=== PATIENT | male | born 2000 | race African-American/Black ===

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

== ENCOUNTER 2020-06-02 11:09 | Emergency (ER) | payer OTHER ==
[2020-06-02 11:27] VITALS: BP 160/72
--- NOTE | 2020-06-02 11:54 | ER Document Report ---
ED General - General Chief Complaint: STD Exposure Stated Complaint: STD CHECK Primary Care Provider: YANDEL PAGE MD [ACTIVE STAFF] - Follow up as needed TRAVEL OUTSIDE OF THE [place] IN LAST 30 DAYS: No - HPI Notes: Chief Complaint: STD check Historian: History obtained from patient HPI: This is a 19-year-old male presents to the ER complaining of possible STD exposure. Patient says he had sexual contact with a partner who recently called him and said they were diagnosed with herpes. Said he had a painful rash on his genitals that resolved a couple days ago. He he still has some mild dysuria. Denies testicular swelling or pain. No fevers or chills. No treatments tried. ROS: Constitutional: no fevers. HEENT: no CAMACHO, sore throat, or vision changes. CV: no chest pain or palpitations. Resp: no cough or SOB. GI: n dysuria. painful genital rashresolved MSK: no back pain, no joint swelling/redness. Skin: no rashes or itching. Neuro: no seizures, weakness, numbness, or confusion. Hematological: no ecchymosis or easy bleeding. Endocrine: no polyuria/polydipsia, no heat/cold intolerance. Psych: no SI/HI, AH/VH or memory loss. PMHx: Reviewed and agree as charted by RN. PSHx: Reviewed and agree as charted by RN. SOCHx: Reviewed and agree as charted by RN. FHX: No significant familial comorbid conditions directly related to patient complaint Current Medications: Reviewed and agree with the patient medications as charted by the RN. Allergies: Reviewed and agree with the listed allergies as charted by the RN Physical Exam: Vitals: Reviewed in chart as documented by RN. General: Alert and in NAD. Head: Normocephalic; atraumatic Eyes: PERRLA, Conjunctivae clear sclerae non-icteric bilat ENT: no soft palate swelling or uvular deviation Neck: trachea midline, no unilateral swelling/tenderness/lymphadenopathy CV: RRR, no M/R/G; symmetric distal pulses Resp: respirations even and unlabored, CTA bilat. GI: abd soft and nondistended. NTTP. normal BS. no masses/HSM. no CVAT bilat - pt declined exam MSK: FROM of all extremities. No midline CTL spine tenderness/deformity Skin: warm, moist, good turgor. no rash/lesions Neuro: Alert and oriented X 4. following CN 2-12 intact. no unilateral weakness/numbness Psych: No SI/HI or AH/VH. ED Results: Medical Decision-Making: ddx- UTI, pyelo, STD, herpes, syphilis, trich, g/c, orchitis, epididytmis, testicular torsion- unlikely, ect plan- will get HSV 1-2 antibody, unable to do HSV culture due to resolved rash. likely empirically treat for HSV and g/c. Sexual precautions discussed. pt is to inform partners to get tested and/or treated. return factors discussed. no sexual contact for 10 days. pcp f/u next week for recheck. - Related Data Allergies/Adverse Reactions: No Known Allergies Allergy (Verified 06/02/20 11:35) Past Medical History - Social History Smoking Status: Current Every Day Smoker Chew tobacco use (# tins/day): No Frequency of alcohol use: None Drug Abuse: None Family History: Reviewed & Not Pertinent Renal/ Medical History: Denies: Hx Peritoneal Dialysis Physical Exam - Vital signs Vitals: Temp Pulse Resp BP Pulse Ox 98.4 F 68 18 160/72 H 96 06/02/20 11:25 06/02/20 11:25 06/02/20 11:25 06/02/20 11:25 06/02/20 11:25 Course - Re-evaluation Re-evalutation: 06/02/20 12:56 hsv is a sendout test. will empirically treat for HSV w/ valcyclovir. pending g/c and UA results. will empirically treat for g/c w/ rocephin/azithro. pcp f/u next week .return factors discussed. abstain from sexual contact for 10 days and resolved symptoms- hsv education given 06/02/20 13:55 - Vital Signs Vital signs: Temp Pulse Resp BP Pulse Ox 98.4 F 68 18 160/72 H 96 06/02/20 11:25 06/02/20 11:25 06/02/20 11:25 06/02/20 11:25 06/02/20 11:25 - Laboratory Results Laboratory Results Interpreted: 06/02/20 12:29 Urine Protein 30 H Urine Ketones TRACE H Urine Urobilinogen 4.0 H Critical Laboratory Results Reviewed: No Critical Results - Radiology Results Critical Radiology Results Reviewed: No Critical Results Discharge - Discharge Clinical Impression: Exposure to herpes simplex virus (HSV), Dysuria Condition: Stable Disposition: HOME, SELF-CARE Instructions: Genital Herpes ([facility]) Additional Instructions: no sexual contact for 10 days and no symptoms. always practice safe sex w /condoms. follow printed instructions. they will call you if your are positive if your labs are positive. herpes is not curable. Prescriptions: Valacyclovir HCl [Valacyclovir] 1,000 mg PO TID #10 tablet Referrals: YANDEL PAGE MD [ACTIVE STAFF] - Follow up as needed
[2020-06-02 13:00] LABS: APPEARANCE,URINE CLEAR; BILIRUBIN,URINE NEGATIVE (NEGATIVE); COLOR,URINE YELLOW; GLUCOSE, URINE NEGATIVE (NEGATIVE); KETONES,URINE TRACE mg/dL (NEGATIVE); LEUKOCYTE ESTERASE,URINE NEGATIVE (NEGATIVE); NITRITE,URINE NEGATIVE (NEGATIVE); PROTEIN,URINE 30 mg/dL (NEGATIVE); URINE SPECIFIC GRAVITY 1.031
[2020-06-02] MEDS ORDERED: CEFTRIAXONE INJ 250 MG VIAL IM ONE (13:54)
[2020-06-02] MEDS ORDERED: AZITHROMYCIN 250 MG TABLET PO ONE (13:54)
[2020-06-02] MEDS ORDERED: LIDOCAINE 1% INJ (10 MG/ML) 10 ML MDV INJ ONE (13:56)
[2020-06-02 14:10] LABS: CHLAM PCR NOT DETECTED (NOT DETECT)
[2020-06-04 07:58] LABS: HSV SOURCE BLOOD
== END 2020-06-02 14:10 | disposition home or self-care (01) ==
LOC: ER 11:09
DX: Z20.2 Contact with and (suspected) exposure to infections with a predominantly sexual mode of transmission (principal); R30.0 Dysuria; F17.200 Nicotine dependence, unspecified, uncomplicated
CPT/HCPCS: 99284; 96372; 87529; 36415; 81001; 87491; 87591; J0696